=== PATIENT | male | born 1980 | race Caucasian/White ===

== ENCOUNTER 2019-01-17 13:51 | Emergency (ER) | payer MEDICAID, MEDICARE, OTHER ==
[~2019-01-17] VITALS: Ht 172.7 cm; Wt 66.0 kg
[~2019-01-17 13:51] MED LIST: CLON-527 PO; DIL100C PO; GABA100C PO
[2019-01-17 13:52] VITALS: BP 125/80
== END 2019-01-17 14:51 ==
LOC: ER 13:52
DX: R56.9 Unspecified convulsions (principal); F15.10 Other stimulant abuse, uncomplicated; Z88.1 Allergy status to other antibiotic agents
CPT/HCPCS: 99283

== ENCOUNTER 2019-02-04 10:20 | Emergency (ER) | payer MEDICARE, OTHER ==
[~2019-02-04] VITALS: Ht 172.7 cm; Wt 75.0 kg
[2019-02-04 10:34] VITALS: BP 130/82
== END 2019-02-04 10:48 | disposition home or self-care (01) ==
LOC: ER 10:20
DX: Z00.00 Encounter for general adult medical examination without abnormal findings (principal); F15.90 Other stimulant use, unspecified, uncomplicated; Z88.1 Allergy status to other antibiotic agents; Z79.899 Other long term (current) drug therapy
CPT/HCPCS: 99284

== ENCOUNTER 2019-06-18 01:52 | Emergency (ER) | payer MEDICAID, OTHER ==
[~2019-06-18] VITALS: Ht 175.3 cm; Wt 70.5 kg
[2019-06-18] MEDS ORDERED: normal saline 1000ML IV soln IVB ONE ×2 (02:35)
[2019-06-18 03:04] LABS: BASOPHILS # (AUTO) 0.1 X10'3 (0-0.2); BASOPHILS % (AUTO) 0.7 % (0-1); EOSINOPHILS # (AUTO) 0.1 X10'3 (0-0.9); EOSINOPHILS % (AUTO) 1.1 % (0-6); HEMOGLOBIN 12.6 g/dl (14.0-17.9); LYMPHOCYTES # (AUTO) 1.2 X10'3 (1.1-4.8); LYMPHOCYTES % (AUTO) 11.9 % (21-51); MEAN CORPUSCULAR HEMOGLOBIN 31.2 PG (27.0-31.0); MEAN CORPUSCULAR HGB CONC 33.3 g/dL (33.0-36.5); MEAN CORPUSCULAR VOLUME 93.9 FL (78-98); MEAN PLATELET VOLUME 6.8 FL (7.4-10.4); MONOCYTES # (AUTO) 1.2 X10'3 (0-0.9); MONOCYTES % (AUTO) 12.5 % (2-12); NEUTROPHILS # (AUTO) 7.1 X10'3 (1.8-7.7); NEUTROPHILS % (AUTO) 73.8 % (42-75); PLATELET COUNT 261 X10'3 (140-440); RED BLOOD COUNT 4.05 X10'6 (4.70-6.10); RED CELL DISTRIBUTION WIDTH 16.7 % (11.5-14.5); WHITE BLOOD COUNT 9.6 X10'3 (4.5-11.0)
[2019-06-18 03:18] LABS: ALBUMIN 3.6 G/DL (3.4-5.0); ALKALINE PHOSPHATASE 127 IU/L (46-116); ANION GAP 10 (8-16); ASPARTATE AMINO TRANSFERASE 569 U/L (10-37); BILIRUBIN,TOTAL 1.3 MG/DL (0.1-1.0); BLOOD UREA NITROGEN 17 MG/DL (7-18); BUN/CREATININE RATIO 19.8 (5.4-32.0); CALCIUM 8.6 MG/DL (8.5-10.1); CHLORIDE 107 MMOL/L (99-107); CREATININE 0.86 MG/DL (0.60-1.10); GLUCOSE 98 MG/DL (70-104); POTASSIUM 3.2 MMOL/L (3.5-5.1); SODIUM 143 MMOL/L (135-145); TOTAL CARBON DIOXIDE 26.2 MMOL/L (24-32); TOTAL PROTEIN 7.1 G/DL (6.4-8.2); eGFR > 90 ML/MIN
[2019-06-18 03:19] LABS: ALANINE AMINOTRANSFERASE 1299 U/L (12-78)
[2019-06-18 03:22] LABS: CREATINE KINASE 1024 U/L (39-308); ETHANOL < 0.010 GM/DL (0.0-0.010)
[2019-06-18 05:08] LABS: CLARITY,URINE CLEAR (Clear); COLOR,URINE AMBER (Yellow); GLUCOSE, URINE NEGATIVE (Neg); KETONES,URINE 15 mg/dl (Neg); LEUKOCYTE ESTERASE ,URINE NEGATIVE (Neg); NITRITES, URINE NEGATIVE (Neg); OCCULT BLOOD,URINE NEGATIVE (Neg); PH,URINE 5.5 (4.8-8.0); PROTEIN,URINE TRACE mg/dl (Neg)
[2019-06-18 05:09] LABS: UA COLLECTION TYPE CLN CATCH MIDSTREAM
[2019-06-18 05:14] LABS: URINE AMPHETAMINE SCREEN POSITIVE (Neg); URINE BARBITUATE SCREEN NEGATIVE (Neg); URINE BENZODIAZEPINES SCREEN NEGATIVE (Neg); URINE CANNABINOID SCREEN NEGATIVE (Neg); URINE COCAINE SCREEN NEGATIVE (Neg); URINE METHADONE SCREEN NEGATIVE (Neg); URINE OPIATE SCREEN POSITIVE (Neg); URINE PHENCYCLIDINE SCREEN NEGATIVE (Neg)
[2019-06-18 05:16] LABS: WBC,URINE 0-4 /HPF (0-4)
[2019-06-18 05:17] LABS: BACTERIA,URINE FEW /HPF (Neg); MUCUS STRANDS MANY /LPF (Neg); RBC,URINE NONE SEEN /HPF (0-2); SQUAMOUS EPITHELIAL CELL,UR FEW /LPF (FEW)
[2019-06-18 05:18] LABS: HYALINE CASTS 0-3 /LPF (NEGATIVE)
--- NOTE | 2019-06-18 06:15 | NUR ---
PATIENT AMBULATED SELF TO RADIOLOGY WITH [facility].
--- NOTE | 2019-06-18 06:24 | NUR ---
PATIENT BACK IN THE ROOM.
--- NOTE | 2019-06-18 07:42 | NUR ---
PATIENT BACK IN THE ROOM.
[2019-06-18 08:55] VITALS: BP 110/71
== END 2019-06-18 08:57 | disposition home or self-care (01) ==
LOC: ER 01:53
DX: R41.82 Altered mental status, unspecified (principal); R74.0 Nonspecific elevation of levels of transaminase and lactic acid dehydrogenase [LDH]; F19.90 Other psychoactive substance use, unspecified, uncomplicated; F41.9 Anxiety disorder, unspecified; F17.200 Nicotine dependence, unspecified, uncomplicated; F15.90 Other stimulant use, unspecified, uncomplicated; F11.90 Opioid use, unspecified, uncomplicated; R79.1 Abnormal coagulation profile; Z86.69 Personal history of other diseases of the nervous system and sense organs; Z88.1 Allergy status to other antibiotic agents; Z79.899 Other long term (current) drug therapy
CPT/HCPCS: 36415; 70450; 71045; 72040; 80053; 80305; 80320; 81001; 82550; 85025; 85610; 96360; 99284; J7030; J7040

== ENCOUNTER 2024-01-11 13:17 | Emergency (ER) | payer MEDICAID ==
[~2024-01-11] VITALS: Ht 175.3 cm; Wt 71.0 kg
[2024-01-11 13:25] VITALS: BP 111/72; PULSE 76; RESP 20; O2SAT 100
[2024-01-11] MEDS ORDERED: CEFD300C3 PO (13:34)
[2024-01-11 14:00] VITALS: TEMP 99.3
== END 2024-01-11 14:03 | disposition home or self-care (01) ==
LOC: ER 13:18
DX: J32.9 Chronic sinusitis, unspecified (principal); J40 Bronchitis, not specified as acute or chronic; F15.90 Other stimulant use, unspecified, uncomplicated; Z91.041 Radiographic dye allergy status; Z79.899 Other long term (current) drug therapy
CPT/HCPCS: 99283

== ENCOUNTER 2024-02-18 09:47 | Emergency (ER) | payer MEDICAID ==
[~2024-02-18] VITALS: Ht 175.3 cm; Wt 72.0 kg
[2024-02-18] MEDS ORDERED: CYCL-1 PO (11:58)
[2024-02-18] MEDS: ketorolac trometh inj. 60 MG/2 ML VIAL IM ONE (12:09)
[2024-02-18] MEDS: cyclobenzaprine 10mg tablet PO ONE (12:10)
[2024-02-18] MEDS: HYDROcodone/acetaminophen 10/325mg tab PO ONE (12:10)
[2024-02-18 12:20] VITALS: BP 131/84; PULSE 66; RESP 16; TEMP 98.2; O2SAT 98
== END 2024-02-18 12:22 | disposition home or self-care (01) ==
LOC: ER 09:47
DX: M54.2 Cervicalgia (principal); M62.838 Other muscle spasm; F15.90 Other stimulant use, unspecified, uncomplicated; Z91.041 Radiographic dye allergy status; Z79.899 Other long term (current) drug therapy
CPT/HCPCS: 96372; 99283; J1885

== ENCOUNTER 2024-11-06 17:04 | Emergency (ER) | payer MEDICAID ==
[~2024-11-06] VITALS: Ht 175.3 cm; Wt 77.3 kg
[~2024-11-06 17:04] MED LIST changes: +CYCL-1 PO
[2024-11-06 17:22] VITALS: BP 101/58; PULSE 65; RESP 15; TEMP 98.4; O2SAT 98
[2024-11-06] MEDS ORDERED: AMOX-100 PO (18:12)
[2024-11-06] MEDS: acetaminophen 325mg tablet PO ONE (18:36)
[2024-11-06] MEDS: ibuprofen tablet 400 MG TABLET PO ONE (18:36)
== END 2024-11-06 18:37 | disposition home or self-care (01) ==
LOC: ER 17:05
DX: S02.5XXA Fracture of tooth (traumatic), initial encounter for closed fracture (principal); K02.9 Dental caries, unspecified; F41.9 Anxiety disorder, unspecified; F15.90 Other stimulant use, unspecified, uncomplicated; F12.90 Cannabis use, unspecified, uncomplicated; Z88.1 Allergy status to other antibiotic agents; Z88.8 Allergy status to other drugs, medicaments and biological substances; X58.XXXA Exposure to other specified factors, initial encounter; Y93.89 Activity, other specified; Y92.89 Other specified places as the place of occurrence of the external cause; Y99.8 Other external cause status
CPT/HCPCS: 99283

== ENCOUNTER 2024-12-18 07:53 | Outpatient (CLI) | payer MEDICAID | END 2024-12-18 23:59 | disposition home or self-care (01) | LOC: RAD 07:53 | PROVIDERS: ATTEND Physician Assistant Medical | DX: R40.20 Unspecified coma (principal); Z87.828 Personal history of other (healed) physical injury and trauma | CPT/HCPCS: 95816 ==

== ENCOUNTER 2025-09-30 10:40 | Emergency (ER) | payer MEDICAID ==
[~2025-09-30] VITALS: Ht 175.3 cm; Wt 87.5 kg
[2025-09-30 10:47] VITALS: TEMP 96.9
--- NOTE | 2025-09-30 10:53 | ELECTROCARDIOGRAPH REPORT ---
[facility] Test Date: 2025-09-30 Test Time: 10:46:19 Pat Name: VAMSHI DE LA TORRE Department: EMERGENCY ROOM Room: Gender: M Faculty Head: JORDON : 1980 Requested By: YOVANA LINDER Order Number: [id number] Reading MD: Dr. ANN Mckeon Measurements Intervals [place] Rate: 67 P: 48 CA: 145 QRS: 59 QRSD: 80 T: 18 QT: 374 QTc: 395 Interpretive Statements Sinus rhythm Electronically Signed On 10-02-2025 18:09:[address] ANN Mckeon Please click the below link to view image of tracing.
--- NOTE | 2025-09-30 11:11 | RADIOLOGY REPORT ---
EXAM: DI CHEST,SINGLE VIEW HISTORY: CP COMPARISON: None TECHNIQUE: PA upright view of the chest was performed. FINDINGS: No pneumothorax, consolidative infiltrates, or pulmonary edema. The heart is not enlarged. There are multiple old left rib fractures. IMPRESSION: No acute intrathoracic process.
[2025-09-30 11:19] LABS: MEAN PLATELET VOLUME 7.2 FL (7.4-10.4); RED CELL DISTRIBUTION WIDTH 12.8 % (11.5-14.5)
[2025-09-30 11:44] LABS: CREATININE 0.86 MG/DL (0.60-1.10); PRO BRAIN NATRIURETIC PEPTIDE 31 PG/ML (0-125); TOTAL CARBON DIOXIDE 29.9 MMOL/L (24-32); eCRCL 111 ML/MIN; eGFR > 90 ML/MIN
--- NOTE | 2025-09-30 14:21 | Physician Documentation ---
History of Present Illness ~ Chief Complaint: Chest Pain Stated Complaint: CP Time Seen by MD: 12:29 OK to notify your PCP?: Yes Primary Medical Doctor: ESTHER KILLIAN [facility] Source: patient, RN/MD Mode of Arrival: POV HPI Patient is seen today with complaints of anterior sternal chest pain more so in the left side. Patient states pain just started today in his never felt this pain before. Patient denies any specific injury he can recall. Patient denies any shortness of breath or abdominal pain or nausea, vomiting, diarrhea. Patient has no other concern or complaint at this time. Patient denies any family history of heart attacks and denies any personal cardiac history. Tetanus within 5 Years?: No Allergies: Coded Allergies: erythromycin base (Verified Allergy, Unknown, 09/30/25) Active Prescriptions See Medication Reconciliation Form. Medication Reconciliation Scheduled Clonazepam* (Klonopin*), 2 MG PO BID, (Reported) Cyclobenzaprine* (Cyclobenzaprine*), 1 TAB PO HS Gabapentin (Neurontin), 100 MG PO TID, (Reported) Phenytoin Sodium Extended Cap* (Dilantin Cap*), 100 MG PO TID, (Reported) Past Medical History Past Medical History: Seizures, Sinusitis, Anxiety, Panic Disorder Past Surgical History: no surgical history Alcohol Use: Sober Drug Use: methamphetamine, heroin Lives In: Home Review of Systems Constitutional: Denies: chills, fever, weakness Eyes: Denies: pain, blurred vision ENT: Denies: ear pain, nose pain, throat pain, mouth pain Respiratory: Denies: cough, shortness of breath Cardiovascular: Denies: chest pain, palpitations Gastrointestinal: Denies: abdominal pain, nausea, vomiting Genitourinary: Denies: burning, dysuria Male Genitalia: Denies: penile discharge, testicular pain Neurological: Denies: headache, dizziness Musculoskeletal: Denies: pain, swelling Integumentary: Denies: rash, lesions Allergic/Immunologic: Denies: hives, itching Hematologic/Lymphatic: Denies: no symptoms reported Psychiatric: Denies: depression, anxiety Physical Exam Vital Signs: Temperature: 96.9, Source: Temporal, Heart Rate: 72, Respiratory Rate: 18, BP: 128/80, Pulse Oximetry: 99, Weight: 87.500 Oxygen Flow Rate: 0 Physical Exam General: Awake and Alert, no acute distress. HEENT: Conjunctiva pink, Sclera clear, Mucus Membranes moist. Neck: Supple without masses and tenderness. Resp: Unlabored. Lungs clear to auscultation bilaterally. Heart: Regular Rate and rhythm, normal S1 and S2 without murmur, rub or gallop. Abdomen: Soft and non tender no organomegaly Extremities: No cyanosis,clubbing or edema. Skin: Warm and Dry. Progress Results/Orders Results/Orders Completed Orders - SANCHEZ MAYBERRY Ketorolac Trometh 30mg/Ml Vial (Toradol (09/30/25 14:24) Medications Received in ER Medications (Trade) Dose Ordered Sig/Laurita Route PRN Reason Start Time Stop Time Status Last Admin Dose Admin (Toradol inj. 30mg/ml) 30 mg ONCE STAT IM 09/30/25 14:24 09/30/25 14:27 DC 09/30/25 14:44 30 MG Vital Signs 09/30/25 09/30/25 09/30/25 09/30/25 10:47 11:35 14:40 14:44 Temp 96.9 Pulse 72 67 Resp 18 14 14 B/P (MAP) 128/80 131/80 (97) Pulse Ox 99 95 O2 Flow Rate 0 0 Laboratory Tests Test 09/30/25 11:11 09/30/25 12:46 White Blood Count 5.9 Red Blood Count 4.74 Hemoglobin 15.4 Hematocrit 44.5 Mean Corpuscular Volume 93.8 Mean Corpuscular Hemoglobin 32.6 H Mean Corpuscular Hemoglobin Concent 34.7 Red Cell Distribution Width 12.8 Platelet Count 287 Mean Platelet Volume 7.2 L Neutrophils (%) (Auto) 60.7 Lymphocytes (%) (Auto) 25.8 Monocytes (%) (Auto) 8.7 Eosinophils (%) (Auto) 4.0 Basophils (%) (Auto) 0.8 Neutrophils # (Auto) 3.6 Lymphocytes # (Auto) 1.5 Monocytes # (Auto) 0.5 Eosinophils # (Auto) 0.2 Basophils # (Auto) 0.0 CBC Comment Sodium Level 142 Potassium Level 4.0 Chloride Level 104 Carbon Dioxide Level 29.9 Anion Gap 8 Blood Urea Nitrogen 15 Creatinine 0.86 Estimated GFR/1.73 m2 > 90 BUN/Creatinine Ratio 17.4 Glucose Level 77 Calcium Level 9.1 Troponin I High Sensitivity 4 4 Pro-B-Type Natriuretic Peptide 31 Albumin 4.2 Chemistry Comments Troponin I High Sens Percent Delta 0 Troponin I Hi Sens Absolute Change 0 EKG/XRAY/CT/US/VASC/MRI Chest X-Ray : Additional Comments Chest x-ray interpreted by myself today shows normal mediastinum, no large infiltrate, no large effusion. DIAGNOSTIC RADIOLOGY Patient: VAMSHI DE LA TORRE Medical Record: [id number] ELIZABETH FORT THOMAS : 1980, Age: 44 Sex: Male Location: ER Patient Status: [facility] ER Service Date/Time: 09/30/25/ 1051 Ordering Physician: YOVANA LINDER MD Exam: CHEST,SINGLE VIEW EXAM: DI CHEST,SINGLE VIEW HISTORY: CP COMPARISON: None TECHNIQUE: PA upright view of the chest was performed. FINDINGS: No pneumothorax, consolidative infiltrates, or pulmonary edema. The heart is not enlarged. There are multiple old left rib fractures. IMPRESSION: No acute intrathoracic process. Electronically Signed by:ROCKY AL MD Date & Time: 09/30/25 1109 Dictated by: ROCKY AL MD Dictation date and time: 09/30/25 1100 Primary Care Provider: NO PRIMARY CARE PROVIDER cc: YOVANA LINDER MD ~ Heart Score: Heart Score Response (Comments) Value History Slightly Suspicious 0 EKG Normal 0 Age <45 0 Risk Factors No known risk factors 0 Troponin Normal limit 0 Total 0 Medical Decision Making Additional information obtaine: N/A Findings Patient is seen today with complaints of anterior sternal chest pain more so in the left side. Patient states pain just started today in his never felt this pain before. Patient denies any specific injury he can recall. Patient denies any shortness of breath or abdominal pain or nausea, vomiting, diarrhea. Patient has no other concern or complaint at this time. Patient denies any family history of heart attacks and denies any personal cardiac history. Patient has a heart score of 0. Patient's labs and imaging and EKG were all unremarkable. Patient has highly reproducible chest pain to palpation on exam. Patient will follow up with primary care in 2-3 days if no better as needed sooner. Return to ED with any worsening, concerning or changing symptoms. Patient was also given a Toradol injection IM 30 mg in the ED today. Patient tolerated well. Differential Dx:Considerations: Include: Chest wall contusion, Myocardial contusion, Pulmonary contusion, Rib fracture Departure Disposition: HOME / SELF CARE / HOMELESS Impression: Primary Impression: Chest wall pain Condition: Stable Discharge Instructions: Chest Wall Pain Additional Instructions: Patient has a heart score of 0. Patient's labs and imaging and EKG were all unremarkable. Patient has highly reproducible chest pain to palpation on exam. Patient will follow up with primary care in 2-3 days if no better as needed sooner. Return to ED with any worsening, concerning or changing symptoms. Patient was also given a Toradol injection IM 30 mg in the ED today. Departure Forms: Excuse form Work or School Excused From: Work Excuse beginning now through the following date: Sep 30, 2025 Referrals: NO PRIMARY CARE PROVIDER (PCP) Signature Scribe Signature: No scribe Attestation: No scribe SANCHEZ MAYBERRY Sep 30, 2025 14:21
[2025-09-30 14:40] VITALS: BP 131/80; PULSE 67; O2SAT 95
[2025-09-30 14:44] VITALS: RESP 14
[2025-09-30] MEDS: ketorolac trometh 30MG/ML vial 30 MG/ML VIAL IM STA (14:44)
== END 2025-09-30 14:53 | disposition home or self-care (01) ==
LOC: ER 10:41
DX: R07.89 Other chest pain (principal); F41.9 Anxiety disorder, unspecified; F15.90 Other stimulant use, unspecified, uncomplicated; F11.90 Opioid use, unspecified, uncomplicated; Z88.1 Allergy status to other antibiotic agents; Z79.899 Other long term (current) drug therapy
CPT/HCPCS: 36415; 71045; 80048; 83880; 84484; 85025; 93005; 96372; 99285; J1885